=== PATIENT | female | born 1980 | race Caucasian/White ===

== ENCOUNTER → 2019-08-15 | Outpatient (CLI) | payer BC ==
[~2019-08-15] MED LIST: AUGMENTIN 875875 MG PO; IBUPROFEN 800800 M1 PO; SENNA-S TABLET1 EACH PO; SPORANOX100 M1; SRONYX1 EACH PO; TRAMADOL 50 MG50 MG PO
== END ==
LOC: SJCVCIMAG 13:26
DX: R00.2 Palpitations (principal)